=== PATIENT | male | born 1965 | race Caucasian/White ===

== ENCOUNTER 2018-08-24 19:21 | Emergency (ER) | payer OTHER | END 2018-08-24 21:55 | disposition home or self-care (01) | LOC: FTE 19:21 | DX: K08.89 Other specified disorders of teeth and supporting structures (principal); I10 Essential (primary) hypertension; Z87.891 Personal history of nicotine dependence; Z79.82 Long term (current) use of aspirin | CPT/HCPCS: 99283; Z7502 ==